=== PATIENT | male | born 2000 | race Caucasian/White ===

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

== ENCOUNTER → 2022-01-21 16:27 | Outpatient (CLI) | payer OTHER, MEDICAID, SELFPAY | PROVIDERS: Visit Provider Nurse Practitioner Family | DX: R30.0 Dysuria (principal) | CPT/HCPCS: 81002; 87086 ==

== ENCOUNTER 2022-07-30 20:38 | Emergency (ER) | payer OTHER, MEDICAID, SELFPAY ==
[2022-07-30 21:19] VITALS: BP 124/76; PULSE 76; RESP 18; TEMP 36.3; O2SAT 99; BMI 23.0
--- NOTE | 2022-07-31 01:47 | ED.SKABFB ---
HPI - Skin/Abscess/Foreign Bdy General Chief complaint: Skin/Abscess/Foreign Body Stated complaint: Tonsil puncture, Stuff has gotten in there Time Seen by Provider: 07/31/22 01:47 Source: patient Mode of arrival: Ambulatory Limitations: no limitations History of Present Illness HPI narrative: This is a healthy 21-year-old male. With complaint of something stuck on his left tonsil. Patient states he was eating sunflower seeds he feels like a piece got stuck he can see it on the back of his tonsil. He does have large tonsils he has been told this in the past. He states it just happened this evening it is irritating was irritating his gag reflex. Patient states it feels like it is just at that area he does not think it is any larger. He denies any other injuries or issues. Patient states he is otherwise healthy, no allergies to medication no prior surgeries. No known drug allergies. Related Data Previous Rx's Medication Instructions Recorded ondansetron 4 mg disintegrating 4 mg PO TID-QID PRN nausea and 03/08/21 tablet vomiting #10 tabs Allergies Allergy/AdvReac Type Severity Reaction Status Date / Time No Known Drug Allergies Allergy Verified 03/08/21 13:10 Review of Systems Review of Systems ROS Unobtainable: All systems reviewed & are unremarkable except as noted in HPI and below Patient History Medical History Healthy adult Social History Smoking Status: Former smoker Smoking Status: Former smoker Substance Use Type: does not use Exam Narrative Exam Narrative: GEN: well nourished, well appearing male, alert and oriented x 3, patient appears to be in mild distress. HEENT: Atraumatic, pupils are equal round reactive to light, extraocular movements are intact, nares are clear, TMs are clear with no fluid, there is no conjunctival pallor. Throat is clear without any exudates, erythema, patient has enlarged tonsils bilaterally but there is a large gap between them. There is a small 7 mm piece of what appears to be husk of a seed at the lower edge of the tonsil just protruding slightly. It appears to be very superficially embedded. It is on the medial edge of the tonsil very far from the outer oropharynx or posterior oropharynx. Patient has normal speech, no hoarseness. HEART: Regular rate and rhythm without murmur, clicks, rubs. LUNGS:Lungs clear to auscultation, no wheezes, rales, crackles, chest moves symmetrically ABD:bowel sounds normal, soft, non-tender, no guarding, rebound, rigidity, no masses noted, no hepatosplenomegal MSCL: Non-tender, no muscle atrophy, muscles strength 5/5 upper and lower extremities, full range of motion, normal gait NEURO:CN 2-12 intact, sensation normal SKIN: Rash, erythema or other skin changes Initial Vital Signs Initial Vital Signs: Vital Signs Temperature 97.4 F L 07/30/22 21:19 Pulse Rate 76 07/30/22 21:19 Respiratory Rate 18 07/30/22 21:19 Blood Pressure 124/76 07/30/22 21:19 Pulse Oximetry 99 07/30/22 21:19 Oxygen Delivery Method 07/30/22 21:19 Procedures Foreign Body OTHER Foreign Body Removal Site: left and oral (tonsil) Description of foreign body: other (portion of sunflower seed husk) Sedation/Analgesia: other (nebulized lidocaine) Technique: removal with forceps Confirmed by:: direct visualization Complications: none Post-procedure exam: awake, alert, normal BP, normal HR and normal O2 sat Neurovascular: no change from pre-procedure Course Orders Ordered: Discontinued Medications Lidocaine HCl (Lidocaine 2% Inj Sdv) 3.3339 ml 0.05 ml/kg (3.3339 ml) INH NOW ONE Stop: 07/31/22 01:56 Last Admin: 07/31/22 02:29 Dose: 3.3339 ml Documented By: [facility] Vital Signs Vital signs: Vital Signs - 8 hr 07/31/22 02:30 Pulse Rate 74 Respiratory Rate 16 Blood Pressure 113/70 Pulse Oximetry 99 Oxygen Delivery Method Room Air MDM - Skin/Abscess/Foreign Bdy MDM Narrative Medical decision making narrative: 21-year-old male, able to visualize what appears to be possible piece of a seed husk. It is on the left medial portion of the tonsil patient does have quite enlarged tonsils which he states he has been told in the past. Patient was given nebulized lidocaine and I was able to easily remove the portion of what does appear to be a husky of a sunflower seed. There is a very small puncture 1 mm at the medial edge of the tonsil, discussed salt water gargle, return precautions. Patient tolerated without any issue. Discharge Plan Departure Patient Disposition: Home Clinical Impression: Foreign body of tonsil Activity Restrictions/Additional Instructions: You had a small foreign body imbedded superficially in your left tonsil there is a small puncture but otherwise is intact. It does appear to be a portion or piece of husk from a seed. I would recommend gargling with warm salt water for the next day or two. You can take Tylenol and/or ibuprofen as needed There maybe a sterile be some irritation after the lidocaine wears off but this should be gone in 24-48 hours. Please return for new swelling, increasing redness, muffled voices, signs of drainage, if you feel there is foreign bodies present or other new or concerning changes. Prescriptions: No Action ondansetron 4 mg tablet,disintegrating 4 mg PO TID-QID PRN (Reason: nausea and vomiting) Qty: 10 0RF Referrals: Miscellaneous,Doctor, MD [Primary Care Provider] - Visit Report Forms: Patient Portal/API
--- NOTE | 2022-07-31 01:56 | PC.NURSE ---
patient reports eating sunflower seeds and felt something stick into left tonsil. There appears to be something stuck superficially in left tonsil. Patient tolerating saliva and speaking with no difficulty.
[2022-07-31] MEDS: LIDOCAINE 2% INJ SDV 3.3339 ML INH (02:29)
[2022-07-31 02:30] VITALS: BP 113/70; PULSE 74; RESP 16; O2SAT 99
--- NOTE | 2022-07-31 02:30 | PC.NURSE ---
shell of sunflower seed removed from left tonsil. Patient tolerated well.
== END 2022-07-31 02:33 | disposition home or self-care (01) ==
PROVIDERS: Emergency Provider Emergency Medicine
DX: T17.228A Food in pharynx causing other injury, initial encounter (principal); X58.XXXA Exposure to other specified factors, initial encounter
CPT/HCPCS: 42809; 99283